=== PATIENT | female | born 1935 | race Caucasian/White ===

== ENCOUNTER 2019-01-17 09:34 | Inpatient (IN) ==
--- NOTE | 2019-01-17 09:13 | Anesthesia Evaluation PreOp ---
Date of Encounter: 01/17/19 Time of Encounter: 10:15 - Past History Planned Operation: Right Total Hip Arthroplasty Cardiac History: HTN, Hyperlipidemia Pulmonary History: Denies Any Significant HX JACQUARD FIXER History: Denies Any Significant HX Other Medical History: GERD Anesthesia History: No Prior Anesthetic Complications, Past Anesthesia Alcohol Use: none Drug use: none Medications and Allergies Allergy/AdvReac Type Severity Reaction Status Date / Time meloxicam [From Mobic] Allergy Hives Verified 12/30/18 15:50 pecan nut Allergy Anaphylaxis Verified 12/30/18 15:50 walnut Allergy Anaphylaxis Verified 12/30/18 15:50 - Meds/Allergy Pre-op Review Medications Reviewed: Yes Allergies Reviewed: Yes Beta Blockers on Current Med List: No Anesthesia Results - Labs Laboratory Tests 12/24/18 12/24/18 12/30/18 15:13 15:13 16:13 WBC 6.6 Hgb 10.3 L Hct 31.6 L Plt Count 272 PT 10.7 INR 0.9 APTT 32.8 Sodium 134 L Potassium 4.9 BUN 36 H Creatinine 1.05 - Imaging Additional studies: 11/20/2018 Echo Impressions: LVEF 65%. Mild left ventricular diastolic dysfunction. Normal right ventricular structure and function. Mild aortic regurgitation. Mild tricuspid regurgitation. Mild pulmonary hypertension.Estimated RVSP is 45 mmHg. Anesthesia Exam O2 Sat Height 1.57 m Height 1.57 m Weight 63.957 kg Weight 63.957 kg O2 Sat by Pulse Oximetry 99 Vital Signs Temp Pulse Resp BP Pulse Ox 97.9 F 99 18 167/65 99 01/17/19 09:57 01/17/19 09:57 01/17/19 09:57 01/17/19 09:57 01/17/19 09:57 Height: 5'2'' Weight: 141 lbs NPO (# of Hours): 8 Pain Scale: 0 Pain Scale Used: Numeric (1 - 10) - HEENT Pupil (Motor): EOMI Mallampati: II Teeth: Normal Oral Opening: Greater than 3 - JACQUARD FIXER LOC: Oriented JACQUARD FIXER Motor: Normal RUE, Normal LUE, Normal RLE, Normal LLE, Normal Face JACQUARD FIXER Sensory: Normal: RUE, LUE, RLE, LLE, Face - Cardiac Rhythm: Regular Murmur: None - Pulmonary Breath Sounds: bilateral Clear Respiratory Effort: Symmetrical Anesthesia Assess/Plan ASA Score: 2 Level of consciousness: Cooperative, Oriented, Tranquil Anesthetic Plan: Spinal Monitoring Plan: Standard Monitors Recovery Plan: PACU
[2019-01-17] MEDS ORDERED: CeFAZolin Syr 2,000MG/20 ML 2,000 MG/20 ML SYRINGE IVPB ONE (09:52)
[2019-01-17] MEDS ORDERED: Ringers Solution, Lactated 1,000 ML IVC SCH (10:00)
--- NOTE | 2019-01-17 10:26 | History & Physical Report ---
Date of Encounter: 01/17/19 Time of Encounter: 10:26 24 Hour HP Update - Instructions Instructions: If the History and Physical is less than 30 days old and was completed prior to A.M. admission and or procedure and has NOT been updated on calendar day of procedure please complete this update prior to performing procedure. - Update Patient reports changes in Medical Condition: No Changes in examination, assessment, or condition: No Changes in Medication: No Preop tests/diagnostics Reviewed: Yes Surgery Remains Indicated: Yes Consent for Planned Operative Procedure(s) Verified: Yes - Pre-Operative Checklist Preoperative Checklist Indicated: No Prophylactic Antibiotic Ordered: Yes Is VTE Prophylaxis Indicated?: Yes
[2019-01-17] MEDS ORDERED: Gabapentin 300 MG CAPSULE PO ONE (10:34)
[2019-01-17] MEDS ORDERED: Celecoxib 200 MG CAPSULE PO ONE (10:34)
[2019-01-17] MEDS ORDERED: *HR* OxyCODONE ER (12 HR) 10 MG TABLET PO ONE (10:35)
[2019-01-17] MEDS ORDERED: Ondansetron 4 MG/2 ML VIAL IVP ONE (10:36)
[2019-01-17] MEDS ORDERED: *HR* HYDROmorphone (PF) 1 MG/ML SYRINGE IVP PRN (10:36)
[2019-01-17] MEDS ORDERED: Lidocaine -MPF 2% 2 ML VIAL ONE (11:09)
[2019-01-17] MEDS ORDERED: Ondansetron 4 MG/2 ML VIAL ONE (11:09)
[2019-01-17] MEDS ORDERED: Propofol 500 MG/50 ML INFUS..BTL ONE (11:10)
[2019-01-17] MEDS ORDERED: *HR* FentaNYL (PF) 100 MCG/2 ML VIAL ONE (11:10)
[2019-01-17] MEDS ORDERED: Dexamethasone 4 MG/ML VIAL ONE (11:26)
[2019-01-17] MEDS ORDERED: Ethanol\\Acetic Acid\\Na Ace\\Ben 1,000 ML IRRIG.SOLN IR ONE (12:00)
--- NOTE | 2019-01-17 12:04 | Anesthesia Procedures ---
Date of Encounter: 01/17/19 Time of Encounter: 12:02 Procedures: Anesthesia - Epidural/Spinal Patient ID/Chart reviewed: Yes Patient examined: Yes Consent Obtained: Yes Supplemental Oxygen: Nasal Cannula Supplemental Oxygen Rate (L/min): 2 Sedation: Fentanyl (mcg): 100 Site Prep: Sterile prep and drape, 0.5% Chlorhexidine/Alcohol Patient position: upright Local Anesthetic: Lidocaine 1% Amount of Local Anesthetic used: 2 Interspace Used: L3-L4 Loss of Resistance (ROMIE): No Blood: No CSF: Yes Paresthesia: No Spinal Needle Gauge: 24 Spinal Dose: 2cc 0.5% mpf marcaine Procedure: naac, performed by TU Hernandez Vitals + FHT's: Vital Signs/O2 Sat/Glucose, Most Recent Temp Pulse Resp BP Pulse Ox 97.9 F 78 20 161/62 100 01/17/19 09:57 01/17/19 11:49 01/17/19 11:49 01/17/19 11:49 01/17/19 11:49
[2019-01-17] MEDS ORDERED: Tranexamic Acid 1,000 MG/10 ML VIAL ONE (12:25)
[2019-01-17] MEDS ORDERED: EPHEDrine 50 MG/ML VIAL ONE (12:37)
[2019-01-17] MEDS ORDERED: *HR* PHENYLEPHRINE 1,000 MCG/10 ML SYRINGE IVP ONE (12:57)
--- NOTE | 2019-01-17 13:31 | Orthopedic Operative Note ---
Date of procedure: 01/17/19 Pre-op diagnosis: Right hip arthritis Post-op diagnosis: same Procedure: Procedure: Right Total Hip Replacment robotic-assisted Estimated blood loss: 200 cc Hardware: Metal and polyethylene replacement. Meng DM Cup: 52 cup Femoral 5 Anato, Anteverted stem Head: 0 head with Ella Procedural Notes: Grade 4 arthritic changes femoral head acetabular socket, procedure performed with robotic assistance. Operative leg 7 mm shorter than nonoperative as measured by preoperative CT scan. Operative procedure: The patient was brought to the operating room and placed on the operating room table. After anesthesia was administered the patient was placed in the lateral decubitus position with the operative leg up. All pressure points were padded appropriately and the head was stabilized in the neutral position. The operative extremity was prepped and draped in the sterile surgical fashion patient received IV antibiotic prior to skin incision. 3 Steinmann pins were placed in the iliac crest 3 cm proximal to the anterior superior iliac spine this was for the robotic-assisted sensor. This was done through a small 2 cm incision. A standard posterior approach is made to the operative hip, the inc ision was made through the skin and subcutaneous tissue hemostasis was obtained with Bovie cautery. Using careful sharp dissection the fascia was identified and incised exposing the external rotators. The greater trochanter was marked, and length was measured at this time utilizing robotic assistance. The external rotators were released off the greater trochanter and tagged with #2 FiberWire suture. The capsule was T'd open and the hip was brought into internal rotation. Patient noted to have grade 4 arthritic changes femoral head. The femoral neck cut was made at the appropriate level roughly 15 mm proximal to the lesser trochanter aced on preoperative templating. An anterior capsulotomy was performed for the anterior retractor. Soft tissues removed from the acetabulum. Patient noted to have grade 4 arthritic changes acetabulum. The acetabulum reference point was confirmed. The acetabulum was then mapped with robotic assistance. Based on the preoperative plan the acetabulum was reamed in one step with a52 reamer. The 52 acetabulum was impacted with robotic assistance and 36 degrees of abduction and 24 degrees of anteversion. The hip was brought back in to internal rotation and prepared with the paper box maker followed by the canal finder followed by the reaming process to a size 13 broaching process in 20 degrees anteversion. It was broached up to the appropriate size 5 Trial reduction revealed leg lengths close to normal. The femoral implant was impacted in place in 20 degrees of anteversion. Trial reduction found the hip to be stable with 0 head and Ella. The trials were removed and the real implants were impacted in place. The hip was reduced, patient had robotic confirmed leg length of 8 mm longer than the contralateral side. The hip had excellent stability with forward flexion to 90 degrees adduction of 30 degrees and internal rotation of 60 degrees. The hip had no shuck. The hip sat with an antibacterial solution. It was irrigated out with 2 L of pulse irrigation. The Steinmann pins were removed. The hip was closed by the PA. The deep tissue was irrigated and closed deep with #1 PDS suture superficially with 0 PDS suture and skin was closed with Dermabond and zip tie. The patient was placed in a sterile dressing and abduction pillow. The patient was transferred to the recovery room in stable condition. Anesthesia: spinal Surgeon: Shamar Avina Was there an assistant shift supervisor present: Yes [employer] Extension Specialist: Scott العراقي Estimated blood loss (cc): 200 Condition: stable Disposition: PACU
[2019-01-17] MEDS ORDERED: Naloxone 0.4 MG/ML INJ IVP PRN (14:44)
[2019-01-17] MEDS ORDERED: traMADol 50 MG TABLET PO PRN (14:44)
[2019-01-17] MEDS ORDERED: Sennosides 8.6 MG TABLET PO PRN (14:44)
[2019-01-17] MEDS ORDERED: Ondansetron 4 MG/2 ML VIAL IVP PRN (14:44)
[2019-01-17] MEDS ORDERED: MOM Conc 10 ML UD.LIQ PO PRN (14:44)
[2019-01-17] MEDS ORDERED: *HR* OxyCODONE Immed Rel 5 MG TABLET PO PRN (14:44)
[2019-01-17] MEDS ORDERED: HYDROcodone BIT/Homatropine 5 MG TABLET PO PRN (14:44)
[2019-01-17] MEDS ORDERED: Temazepam 15 MG CAPSULE PO PRN (14:44)
[2019-01-17] MEDS ORDERED: *HR* Promethazine 25 MG/ML VIAL IVP PRN (14:44)
--- NOTE | 2019-01-17 14:58 | Anesthesia Evaluation Post Op ---
Date of Encounter: 01/17/19 Time of Encounter: 14:57 - Vital Signs Vital Signs: Vital Signs/O2 Sat, Most Current Temp Pulse Resp BP Pulse Ox 98 F 84 18 145/59 97 01/17/19 14:42 01/17/19 14:42 01/17/19 14:42 01/17/19 14:42 01/17/19 14:42 - Lungs Lungs: Clear Ascult./Percussion - Airway Airway: Non-obstructed - Cardiovascular Regular Rate - Mental Status Mental Status: Baseline Status - Pain Pain Scale: 0 Pain Scale used: Numeric (1 - 10) - Nausea Vomiting Nausea Vomiting: Not Present - Hydration Hydration: Ice chips - Discharge PostOp Status: Transfer Patient to floor
[2019-01-17 15:05] LABS: Hematocrit 31.1 % (35.3-44.9); Hemoglobin 10.1 g/dL (11.5-15.4)
[2019-01-17] MEDS: Ascorbic Acid 500 MG TABLET PO SCH (16:12)
[2019-01-17] MEDS: *HR* Enoxaparin 30 MG/0.3 ML SYRINGE SQ SCH (17:55)
[2019-01-17] MEDS ORDERED: *HR* Enoxaparin 30 MG/0.3 ML SYRINGE SQ SCH (18:00)
[2019-01-17] MEDS: Gabapentin 300 MG CAPSULE PO SCH (20:45)
[2019-01-17] MEDS ORDERED: NON-FORMULARY MEDICATION 1 EACH EACH (Calcium Carbonate/Vitamin D3 [Calcium 500-Vit D3 200 PO SCH (21:00)
[2019-01-18] MEDS: Ringers Solution, Lactated 1,000 ML IVC SCH (00:33)
[2019-01-18 05:24] LABS: Basophils % 0.1 %; Hematocrit 28.3 % (35.3-44.9); Hemoglobin 9.2 g/dL (11.5-15.4); Immature Granulocytes % 0.4 % (0-4); Lymphocytes # 0.7 K/mcL (0.6-4.6); Mean Corpuscular HGB Conc 32.5 g/dL (31.6-35.5); Mean Corpuscular Hemoglobin 31.2 pg (28.0-33.3); Mean Corpuscular Volume 95.9 fL (83.0-100.0); Mean Platelet Volume 11.1 fL (9.4-12.4); Monocytes # 0.7 K/mcL (0.0-1.3); Monocytes % 9.1 %; Neutrophils # 6.1 K/mcL (1.6-8.9); Platelet Count 212 K/mcL (140-400); Red Blood Count 2.95 M/mcL (3.82-4.97); Red Cell Distribution Width 15.1 % (11.5-14.5); Segmented Neutrophils % 81.4 %; White Blood Count 7.5 K/mcL (4.3-11.1)
[2019-01-18] MEDS: *HR* Enoxaparin 30 MG/0.3 ML SYRINGE SQ SCH (05:31)
[2019-01-18 05:40] LABS: BUN/Creatinine Ratio 40 (6-26); Blood Urea Nitrogen 40 mg/dL (8-23); Carbon Dioxide 23 mEq/L (23-29); Chloride 103 mEq/L (98-107); Glucose 173 mg/dL (70-105); Osmolality,Calculated 292 (280-300); Potassium 4.7 mEq/L (3.5-5.1); Sodium 134 mEq/L (136-145); eGFR For African Americans > 60 (> 60); eGFR For Non-African Americans 54 (> 60)
--- NOTE | 2019-01-18 06:30 | Orthopedics Progress Note ---
Date of Encounter: 01/18/19 Time of Encounter: 06:29 - Assessment and Plan (1) Acute blood loss anemia Current Visit: Yes Status: Acute Subjective Interval history: Patient was seen this morning doing well without complaints. Afebrile vital signs stable. Operative extremity: Neurovascularly intact Dressing clean dry and intact Calves nontender Assessment and plan: Continue with postoperative care Crit 28 Objective Vital signs: Vital Signs Temp Pulse Resp BP Pulse Ox 01/17/19 20:43 129/69 01/17/19 18:24 97.5 F L 78 12 119/66 98 01/17/19 17:41 97.7 F 81 16 132/86 98 01/17/19 17:00 97.8 F 92 17 136/78 97 01/17/19 16:00 97.9 F 90 171 149/73 96 01/17/19 15:30 98.1 F 86 16 157/74 100 01/17/19 14:57 98.0 F 89 16 155/63 94 01/17/19 14:42 98 F 84 18 145/59 97 01/17/19 14:32 98 F 85 18 143/89 95 01/17/19 14:22 86 14 125/53 99 01/17/19 14:12 77 14 133/48 96 01/17/19 14:02 97.8 F 88 12 123/51 99 01/17/19 12:20 91 16 130/51 100 01/17/19 12:15 88 16 126/51 100 01/17/19 12:10 86 16 131/51 100 01/17/19 12:05 71 16 136/54 100 01/17/19 12:02 77 16 148/55 100 01/17/19 11:59 76 18 150/51 100 01/17/19 11:56 75 18 149/52 100 01/17/19 11:53 83 18 167/64 100 01/17/19 11:49 78 20 161/62 100 01/17/19 09:57 97.9 F 99 18 167/65 99 Intake and Output 01/17/19 01/17/19 01/18/19 15:59 23:59 07:59 Intake Total 20 / 295 275 / 295 50 / 50 Output Total 200 / 200 0 / 200 0 / 0 Balance -180 / 95 275 / 95 50 / 50 Intake: IV Fluids 20 / 120 100 / 120 Ancef Syringe 2,000 MG/20 ML 2, 20 / 20 000 mg In 20 ml @ 200 mls/hr IVPB PREOP ONE Rx#:[id number] Ancef 2,000 MG In 0.9 % Sodium 100 / 100 Chloride 100 ML @ 200 mls/hr IVPB Q8H SOTO Rx#:[id number] Oral 175 / 175 50 / 50 Output: Urine 0 / 0 0 / 0 Estimated Blood Loss 200 / 200 Other: Meal Dinner Percent of Meal Consumed 0% Weight 63.957 kg 63.8 kg Patient Weight 01/18/19 23:59 Weight 63.8 kg - Labs CBC & BMP: 01/18/19 05:01 01/18/19 05:01 Labs: Abnormal lab results RBC 2.95 M/mcL (3.82-4.97) L 01/18/19 05:01 Hgb 9.2 g/dL (11.5-15.4) L 01/18/19 05:01 Hct 28.3 % (35.3-44.9) L 01/18/19 05:01 RDW 15.1 % (11.5-14.5) H 01/18/19 05:01 Sodium 134 mEq/L (136-145) L 01/18/19 05:01 BUN 40 mg/dL (8-23) H 01/18/19 05:01 Est GFR (Non-Af Amer) 54 (> 60) L 01/18/19 05:01 BUN/Creatinine Ratio 40 (6-26) H 01/18/19 05:01 Glucose 173 mg/dL (70-105) H 01/18/19 05:01 Consult Discharge Plan - Plan Referrals: Gabo Cantrell MD [Primary Care Provider] -
[2019-01-18] MEDS: Multivit/Ca/Min/Fe/FA 1 TAB TABLET PO SCH (08:31)
[2019-01-18] MEDS: Cholecalciferol (D-3) 1,000 UNIT (25MCG) TABLET PO SCH (08:31)
[2019-01-18] MEDS: hydroCHLOROthiazide 25 MG TABLET PO SCH (08:31)
[2019-01-18] MEDS: Ascorbic Acid 500 MG TABLET PO SCH ×2 (08:32→16:06)
[2019-01-18] MEDS: Gabapentin 300 MG CAPSULE PO SCH ×3 (08:32→21:40)
[2019-01-18] MEDS ORDERED: NON-FORMULARY MEDICATION 1 EACH EACH (Biotin 1 MG) PO SCH (09:00)
[2019-01-18] MEDS ORDERED: NON-FORMULARY MEDICATION 1 EACH EACH (Multivitamin [Daily Multiple Vitamin] 1 TAB) PO SCH (09:00)
[2019-01-18] MEDS ORDERED: NON-FORMULARY MEDICATION 1 EACH EACH (Vitamin B Complex [B Complex] 1 TAB) PO SCH (09:00)
[2019-01-18] MEDS ORDERED: NON-FORMULARY MEDICATION 1 EACH EACH (Ascorbate Calcium [Vitamin C] 500 MG) PO SCH (09:00)
[2019-01-18] MEDS ORDERED: NON-FORMULARY MEDICATION 1 EACH EACH (Vit A/C/E Ac/Znox/Cupric Oxide [Eye Vitamin-Minerals PO SCH (09:00)
--- NOTE | 2019-01-18 11:19 | Physician Discharge Referral ---
<Kamille Ayoub - Last Filed: 01/18/19 14:37> ExtendedCare Referral Info Transfer To: [facility] Provider in Charge: Dr. Avina - Diagnosis (1) Status post total hip replacement, right Priority: Primary Status: Acute (2) Arthritis of right hip Priority: Primary Status: Chronic (3) CKD (chronic kidney disease) Priority: Secondary Status: Chronic (4) GERD (gastroesophageal reflux disease) Priority: Secondary Status: Chronic (5) HLD (hyperlipidemia) Priority: Secondary Status: Chronic (6) HTN (hypertension) Priority: Secondary Status: Chronic (7) History of peptic ulcer Priority: Secondary Status: Chronic (8) Acute blood loss anemia Priority: Secondary Status: Chronic Expected Duration of Placement: <30 days Prognosis: Good Aware of Diagnosis: Patient Aware of Prognosis: Patient - Transfer Medications Prescriptions: Docusate Sodium [Colace] 100 mg PO BID 5 Days #10 capsule Enoxaparin [Lovenox] 30 mg SQ DAILY 14 Days #14 syringe OxyCODONE Immed Rel [Roxicodone 5 MG] 5 mg PO Q6HR PRN 5 Days #20 tablet PRN Reason: Severe Pain Home Medications: Ascorbate Calcium [Vitamin C] 500 mg PO DAILY 01/17/19 [History] Atorvastatin [Lipitor] 40 mg PO QPM 01/17/19 [History] Biotin 1 mg PO DAILY 01/17/19 [History] Calcium Carbonate/Vitamin D3 [Calcium 500-Vit D3 200 Caplet] 1 tab PO BID 01/17/19 [History] Ferrous Sulfate 325 mg PO BID 01/17/19 [History] Gluc Levy/Chondro Levy A/Vit C/Mn [Glucosamine Chondroitin Tab] 3 tab PO DAILY 01/17/19 [History] Lisinopril [Zestril] 10 mg PO BID 01/17/19 [History] Multivitamin [Daily Multiple Vitamin] 1 tab PO DAILY 01/17/19 [History] Pantoprazole Sodium [Protonix] 40 mg PO QPM 01/17/19 [History] Vit A/C/E AC/Znox/Cupric Oxide [Eye Vitamin-Minerals Tablet] 1 tab PO DAILY 01/17/19 [History] Vitamin B Complex [B Complex] 1 tab PO DAILY 01/17/19 [History] hydroCHLOROthiazide [Hydrochlorothiazide] 12.5 mg PO QAM 01/17/19 [History] Docusate Sodium [Colace] 100 mg PO BID 5 Days #10 capsule 01/20/19 [Rx] Enoxaparin [Lovenox] 30 mg SQ DAILY 14 Days #14 syringe 01/20/19 [Rx] OxyCODONE Immed Rel [Roxicodone 5 MG] 5 mg PO Q6HR PRN 5 Days #20 tablet 01/20/19 [Rx] Allergies/Adverse Reactions: Allergy/AdvReac Type Severity Reaction Status Date / Time meloxicam [From Mobic] Allergy Hives Verified 01/17/19 10:22 pecan nut Allergy Anaphylaxis Verified 01/17/19 10:22 walnut Allergy Anaphylaxis Verified 01/17/19 10:22 - Respiratory Orders None Smoking Cessation: Smoking cessation has been advised. For more information, call the [facility] [employer] Tobacco Quit Line at 3-364-IXQU-NOW. - Ancillary Orders May use pressure relief devices daily prn, May go on UDAY w/family/respon democrat w/meds at nurse discretion PRN, May consult with Dentist, Pegger Dobby Looms, Inspector Timers PRN - Advance Directives Code Status: Full Code - Mobility Orders Chair, Ambulate - Rehabiliation Orders Rehab Potential: Good Rehab Orders: ROM Exercises, Evaluation for Physical Therapy, Evaluation for Occupational Therapy Other: Opsite dressing, leave intact until first post-operative visit. If dressing becomes >50% saturated, contact office, remove dressing and place appropriate dressing in its place. Do not allow for dressing to get wet. Zipline/Condon in place, plan to remove at post-operative day #14-16. Total Joint Precautions x 6 weeks Apply cold therapy wrap 3-6x/day for 20 minutes at a time. Encourage ambulation throughout the day Use Incentive spirometer 10x/hour. Elevate affected extremity above heart as tolerated. Brace: Wear hip abductor brace at night x 6 weeks - Treatments Skin tear care topically daily PRN per policy - Diet Orders Regular CERTIFICATION: I certify that the transfer of the above named patient to an Extended Care Facility is necessary for the continuing treatment of the diagnosis listed. The above information is true and accurate reflection of patient's current condition. Confidential - Redisclosure prohibited without a patient's written consent. <Kamille Partida E - Last Filed: 01/22/19 08:09> - Diagnosis (1) Arthritis of right hip Priority: Primary Status: Chronic (2) Status post total hip replacement, right Priority: Primary Status: Acute (3) HTN (hypertension) Priority: Secondary Status: Chronic (4) HLD (hyperlipidemia) Priority: Secondary Status: Chronic (5) GERD (gastroesophageal reflux disease) Priority: Secondary Status: Chronic (6) History of peptic ulcer Priority: Secondary Status: Chronic (7) CKD (chronic kidney disease) Priority: Secondary Status: Chronic (8) Acute blood loss anemia Priority: Secondary Status: Acute - Respiratory Orders Smoking Cessation: Smoking cessation has been advised. For more information, call the [place] Tobacco Quit Line at 1-154-SHBP-NOW. CERTIFICATION: I certify that the transfer of the above named patient to an Extended Care Facility is necessary for the continuing treatment of the diagnosis listed. The above information is true and accurate reflection of patient's current condition. Confidential - Redisclosure prohibited without a patient's written consent.
--- NOTE | 2019-01-18 11:19 | Event Note ---
Date of Encounter: 01/18/19 Time of Encounter: 12:50 POD#1 s/p Right Total Hip Replacment robotic-assisted [arthritis] 01/17/19 PCR - Patient seen at bedside. A&Ox3 Dressing and incision c/d/i No calf tenderness, erythema, or warmth. Neurovascularly intact b/l LE. Labwork, vitals, and medications reviewed. Pain control: Adequate Participating in therapy. All questions and concerns addressed. Educated on use of incentive spirometer, ambulation, and hydration. Patient educated on post-operative restrictions and care. Addressed: Mild decrease from baseline renal function. Will continue to monitor Patient course and disposition discussed with Dr. Avina D/C plan: Await acceptance for ECF
[2019-01-19 06:29] LABS: Basophils % 0.3 %; Eosinophils # 0.1 K/mcL (0.0-0.6); Eosinophils % 1.1 %; Immature Granulocytes % 0.3 % (0-4); Lymphocytes # 1.3 K/mcL (0.6-4.6); Lymphocytes % 20.3 %; Mean Corpuscular HGB Conc 32.6 g/dL (31.6-35.5); Mean Corpuscular Hemoglobin 30.9 pg (28.0-33.3); Mean Corpuscular Volume 94.7 fL (83.0-100.0); Mean Platelet Volume 11.7 fL (9.4-12.4); Monocytes # 0.7 K/mcL (0.0-1.3); Neutrophils # 4.4 K/mcL (1.6-8.9); Platelet Count 194 K/mcL (140-400); Red Blood Count 2.43 M/mcL (3.82-4.97); Red Cell Distribution Width 15.3 % (11.5-14.5); White Blood Count 6.6 K/mcL (4.3-11.1)
[2019-01-19 06:30] LABS: Hemoglobin 7.5 g/dL (11.5-15.4)
--- NOTE | 2019-01-19 06:48 | Orthopedics Progress Note ---
Date of Encounter: 01/19/19 Time of Encounter: 06:47 - Assessment and Plan (1) Acute blood loss anemia Current Visit: Yes Status: Chronic Subjective Interval history: Patient was seen this morning doing well without complaints. Afebrile vital signs stable. Operative extremity: Neurovascularly intact Dressing clean dry and intact Calves nontender Assessment and plan: Continue with postoperative care Hemoglobin 7.5 continue to monitor plan for discharge tomorrow Objective Vital signs: Vital Signs Temp Pulse Resp BP Pulse Ox 01/18/19 18:51 97.9 F 78 16 124/61 99 01/18/19 06:51 98.2 F 67 18 131/53 93 Intake and Output 01/18/19 01/18/19 01/19/19 15:59 23:59 07:59 Intake Total 480 / 870 240 / 870 Balance 480 / 870 240 / 870 Intake: Oral 480 / 770 240 / 770 Other: Meal Breakfast Dinner Percent of Meal Consumed 100% 100% # Voids 1 1 - Labs CBC & BMP: 01/19/19 05:46 01/18/19 05:01 Labs: Abnormal lab results RBC 2.43 M/mcL (3.82-4.97) L 01/19/19 05:46 Hgb 7.5 g/dL (11.5-15.4) L D 01/19/19 05:46 Hct 23.0 % (35.3-44.9) L 01/19/19 05:46 RDW 15.3 % (11.5-14.5) H 01/19/19 05:46 Sodium 134 mEq/L (136-145) L 01/18/19 05:01 BUN 40 mg/dL (8-23) H 01/18/19 05:01 Est GFR (Non-Af Amer) 54 (> 60) L 01/18/19 05:01 BUN/Creatinine Ratio 40 (6-26) H 01/18/19 05:01 Glucose 173 mg/dL (70-105) H 01/18/19 05:01 Consult Discharge Plan - Plan Referrals: Gabo Cantrell MD [Primary Care Provider] -
[2019-01-19 06:49] LABS: Calcium 8.4 mg/dL (8.6-10.3); Potassium 4.3 mEq/L (3.5-5.1)
[2019-01-19] MEDS: hydroCHLOROthiazide 25 MG TABLET PO SCH (08:41)
[2019-01-19] MEDS: Ringers Solution, Lactated 1,000 ML IVC SCH (08:45)
[2019-01-19] MEDS: Cholecalciferol (D-3) 1,000 UNIT (25MCG) TABLET PO SCH (08:46)
[2019-01-19] MEDS: Ascorbic Acid 500 MG TABLET PO SCH ×2 (08:46→16:55)
[2019-01-19] MEDS: Multivit/Ca/Min/Fe/FA 1 TAB TABLET PO SCH (08:46)
--- NOTE | 2019-01-19 08:47 | Event Note ---
Date of Encounter: 01/19/19 Time of Encounter: 10:45 POD#2 s/p Right Total Hip Replacment robotic-assisted [arthritis] 01/17/19 PCR - Patient seen at bedside. She states she feels unwell. Patient noted to be pale with lethargy. A&Ox3 Dressing and incision c/d/i No calf tenderness, erythema, or warmth. Neurovascularly intact b/l LE. Labwork, vitals, and medications reviewed. Patient with drop in hemoglobin as well as decreased renal function. BP appears stable. Decreased renal function likely secondary to anemia and dehydration. Pain control: Adequate Participating in therapy. All questions and concerns addressed. Educated on use of incentive spirometer, ambulation, and hydration. Patient educated on post-operative restrictions and care. Addressed: Mild decrease from baseline renal function. Will continue to monitor. 1 unit PRBC ordered with repeat BMP and H/H following completion. Recheck again in the morning. Patient course and disposition discussed with Dr. Avina D/C plan: Accepted at [facility], awaiting insurance auth.
[2019-01-19] MEDS: Gabapentin 300 MG CAPSULE PO SCH (08:49)
[2019-01-19] MEDS ORDERED: *HR* Enoxaparin 30 MG/0.3 ML SYRINGE SQ SCH (09:00)
[2019-01-19] MEDS ORDERED: 0.9 % Sodium Chloride 250 ML IVC SCH (09:00)
[2019-01-19 09:28] LABS: Hematocrit 24.2 % (35.3-44.9); Hemoglobin 7.9 g/dL (11.5-15.4)
[2019-01-19] MEDS ORDERED: 0.9 % Sodium Chloride 250 ML ONE (11:07)
[2019-01-19 15:40] LABS: Calcium 8.6 mg/dL (8.6-10.3); Potassium 4.4 mEq/L (3.5-5.1)
[2019-01-19] MEDS ORDERED: 0.9 % Sodium Chloride 1,000 ML IVC SCH (16:45)
[2019-01-19] MEDS ORDERED: 0.9 % Sodium Chloride 1,000 ML ONE (16:53)
[2019-01-20] MEDS ORDERED: Diphenoxylate/Atropine 1 TAB TABLET PO PRN (04:12)
[2019-01-20 06:48] VITALS: BP 134/68
[2019-01-20 07:55] LABS: Basophils % 0.3 %; Eosinophils # 0.2 K/mcL (0.0-0.6); Eosinophils % 2.5 %; Hematocrit 30.4 % (35.3-44.9); Immature Granulocytes % 0.4 % (0-4); Lymphocytes # 1.3 K/mcL (0.6-4.6); Lymphocytes % 16.4 %; Mean Corpuscular HGB Conc 33.2 g/dL (31.6-35.5); Mean Corpuscular Hemoglobin 31.1 pg (28.0-33.3); Mean Corpuscular Volume 93.5 fL (83.0-100.0); Mean Platelet Volume 11.3 fL (9.4-12.4); Monocytes # 0.7 K/mcL (0.0-1.3); Monocytes % 8.4 %; Neutrophils # 5.7 K/mcL (1.6-8.9); Platelet Count 214 K/mcL (140-400); Red Blood Count 3.25 M/mcL (3.82-4.97); Red Cell Distribution Width 15.8 % (11.5-14.5); White Blood Count 7.9 K/mcL (4.3-11.1)
--- NOTE | 2019-01-20 07:55 | Orthopedics Progress Note ---
Date of Encounter: 01/20/19 Time of Encounter: 07:54 - Assessment and Plan (1) Acute blood loss anemia Current Visit: Yes Status: Chronic Subjective Interval history: Patient was seen this morning loose stool overnight Afebrile vital signs stable. Operative extremity: Neurovascularly intact Dressing clean dry and intact Calves nontender Assessment and plan: Continue with postoperative care Patient received 2 units packed red blood cells repeat H&H pending Objective Vital signs: Vital Signs Temp Pulse Resp BP Pulse Ox 01/20/19 06:47 97.8 F 76 18 134/68 97 01/19/19 19:10 97.9 F 69 17 146/76 99 01/19/19 14:13 98.1 F 74 17 136/58 97 01/19/19 11:39 98.4 F 71 16 142/61 97 01/19/19 11:24 97.8 F 73 16 158/57 96 Intake and Output 01/19/19 01/19/19 01/20/19 15:59 23:59 07:59 Intake Total 590 / 590 Output Total 200 / 200 Balance 390 / 390 Intake: Oral 240 / 240 Blood Product 350 / 350 Rbcs Leuko Poor As-1 Unit 350 / 350 [id number] Output: Urine 200 / 200 Other: Meal Lunch Percent of Meal Consumed 50% Stool Size Large Stool Consistency loose Stool Color Brown # Voids 1 1 1 # Bowel Movements 1 Weight 63.7 kg Patient Weight 01/20/19 23:59 Weight 63.7 kg - Labs CBC & BMP: 01/19/19 08:40 01/19/19 14:57 Labs: Abnormal lab results RBC 2.43 M/mcL (3.82-4.97) L 01/19/19 05:46 Hgb 7.9 g/dL (11.5-15.4) L 01/19/19 08:40 Hct 24.2 % (35.3-44.9) L 01/19/19 08:40 RDW 15.3 % (11.5-14.5) H 01/19/19 05:46 Sodium 133 mEq/L (136-145) L 01/19/19 14:57 BUN 47 mg/dL (8-23) H 01/19/19 14:57 Creatinine 1.36 mg/dL (0.60-1.20) H 01/19/19 14:57 Est GFR ( Amer) 45 (> 60) L 01/19/19 14:57 Est GFR (Non-Af Amer) 37 (> 60) L 01/19/19 14:57 BUN/Creatinine Ratio 35 (6-26) H 01/19/19 14:57 Glucose 123 mg/dL (70-105) H 01/19/19 14:57 Calcium 8.4 mg/dL (8.6-10.3) L 01/19/19 05:46 Crossmatch See Detail 01/19/19 09:24 Consult Discharge Plan - Plan Referrals: Gabo Cantrell MD [Primary Care Provider] -
[2019-01-20 07:58] LABS: Hemoglobin 10.1 g/dL (11.5-15.4)
[2019-01-20] MEDS: Ascorbic Acid 500 MG TABLET PO SCH (08:06)
[2019-01-20] MEDS: Multivit/Ca/Min/Fe/FA 1 TAB TABLET PO SCH (08:06)
[2019-01-20] MEDS: Cholecalciferol (D-3) 1,000 UNIT (25MCG) TABLET PO SCH (08:06)
[2019-01-20 08:08] LABS: BUN/Creatinine Ratio 40 (6-26); Blood Urea Nitrogen 38 mg/dL (8-23); Calcium 8.6 mg/dL (8.6-10.3); Carbon Dioxide 24 mEq/L (23-29); Chloride 105 mEq/L (98-107); Glucose 110 mg/dL (70-105); Osmolality,Calculated 296 (280-300); Potassium 4.7 mEq/L (3.5-5.1); Sodium 138 mEq/L (136-145); eGFR For African Americans > 60 (> 60); eGFR For Non-African Americans 56 (> 60)
--- NOTE | 2019-01-20 11:34 | Discharge Summary ---
Date of Encounter: 01/20/19 Time of Encounter: 11:50 - Discharge Diagnosis (1) Arthritis of right hip Priority: Primary Status: Chronic (2) Status post total hip replacement, right Priority: Primary Status: Acute (3) HTN (hypertension) Priority: Secondary Status: Chronic Qualifiers: Hypertension type: unspecified Qualified Code(s): I10 - Essential (primary) hypertension (4) HLD (hyperlipidemia) Priority: Secondary Status: Chronic Qualifiers: Hyperlipidemia type: unspecified Qualified Code(s): E78.5 - Hyperlipidemia, unspecified (5) GERD (gastroesophageal reflux disease) Priority: Secondary Status: Chronic Qualifiers: Esophagitis presence: esophagitis presence not specified Qualified Code(s): K21.9 - Gastro-esophageal reflux disease without esophagitis (6) History of peptic ulcer Priority: Secondary Status: Chronic (7) CKD (chronic kidney disease) Priority: Secondary Status: Chronic Qualifiers: Chronic kidney disease stage: unspecified stage Qualified Code(s): N18.9 - Chronic kidney disease, unspecified (8) Acute blood loss anemia Priority: Secondary Status: Acute - Hospital Course Hospital course: Ms. Hector is a 83 year old female POD#3 s/p Right Total Hip Replacment robotic-assisted [arthritis] 01/17/19 PCR - Patient seen at bedside. Patient states she feels much better. A&Ox3 Dressing and incision c/d/i No calf tenderness, erythema, or warmth. Neurovascularly intact b/l LE. Labwork, vitals, and medications reviewed. Pain control: Adequate Participating in therapy. All questions and concerns addressed. Educated on use of incentive spirometer, ambulation, and hydration. Patient educated on post-operative restrictions and care. Addressed: Renal function has returned to baseline and hemoglobin is now at satisfactory level. Patient received 1 unit PRBC and 1 L nl saline gentle hydration on POD#2 for acute symptomatic postoperative anemia and dehydration. The patient's postoperative course was uneventful. Progressed from intravenous analgesic needs to oral analgesic needs only. Remained neurovascularly intact and mobilized satisfactorily. All radiographic studies were satisfactory. Patient course and disposition discussed with Dr. Avina. Patient is discharged to rehab with plan for rehabilitation and outpatient orthopedic follow up has been arranged. - Time Spent with Patient Total time spent providing and/or coordinating discharge services: - Discharge Medications Prescriptions: New Docusate Sodium [Colace] 100 mg PO BID 5 Days #10 capsule Enoxaparin [Lovenox] 30 mg SQ DAILY 14 Days #14 syringe OxyCODONE Immed Rel [Roxicodone 5 MG] 5 mg PO Q6HR PRN 5 Days #20 tablet PRN Reason: Severe Pain Continued Pantoprazole Sodium [Protonix] 40 mg PO QPM Multivitamin [Daily Multiple Vitamin] 1 tab PO DAILY Calcium Carbonate/Vitamin D3 [Calcium 500-Vit D3 200 Caplet] 1 tab PO BID Lisinopril [Zestril] 10 mg PO BID hydroCHLOROthiazide [Hydrochlorothiazide] 12.5 mg PO QAM Gluc Levy/Chondro Levy A/Vit C/Mn [Glucosamine Chondroitin Tab] 3 tab PO DAILY Vit A/C/E AC/Znox/Cupric Oxide [Eye Vitamin-Minerals Tablet] 1 tab PO DAILY Ferrous Sulfate 325 mg PO BID Vitamin B Complex [B Complex] 1 tab PO DAILY Biotin 1 mg PO DAILY Atorvastatin [Lipitor] 40 mg PO QPM Ascorbate Calcium [Vitamin C] 500 mg PO DAILY Home Medications: Ascorbate Calcium [Vitamin C] 500 mg PO DAILY 01/17/19 [History] Atorvastatin [Lipitor] 40 mg PO QPM 01/17/19 [History] Biotin 1 mg PO DAILY 01/17/19 [History] Calcium Carbonate/Vitamin D3 [Calcium 500-Vit D3 200 Caplet] 1 tab PO BID 01/17/19 [History] Ferrous Sulfate 325 mg PO BID 01/17/19 [History] Gluc Levy/Chondro Levy A/Vit C/Mn [Glucosamine Chondroitin Tab] 3 tab PO DAILY 01/17/19 [History] Lisinopril [Zestril] 10 mg PO BID 01/17/19 [History] Multivitamin [Daily Multiple Vitamin] 1 tab PO DAILY 01/17/19 [History] Pantoprazole Sodium [Protonix] 40 mg PO QPM 01/17/19 [History] Vit A/C/E AC/Znox/Cupric Oxide [Eye Vitamin-Minerals Tablet] 1 tab PO DAILY 01/17/19 [History] Vitamin B Complex [B Complex] 1 tab PO DAILY 01/17/19 [History] hydroCHLOROthiazide [Hydrochlorothiazide] 12.5 mg PO QAM 01/17/19 [History] Docusate Sodium [Colace] 100 mg PO BID 5 Days #10 capsule 01/20/19 [Rx] Enoxaparin [Lovenox] 30 mg SQ DAILY 14 Days #14 syringe 01/20/19 [Rx] OxyCODONE Immed Rel [Roxicodone 5 MG] 5 mg PO Q6HR PRN 5 Days #20 tablet 01/20/19 [Rx] Allergies/Adverse Reactions: Allergy/AdvReac Type Severity Reaction Status Date / Time meloxicam [From Mob] Allergy Hives Verified 01/17/19 10:22 pecan nut Allergy Anaphylaxis Verified 01/17/19 10:22 walnut Allergy Anaphylaxis Verified 01/17/19 10:22 Date of admission: 01/17/19 14:41 Primary care physician: Gabo Cantrell MD Consults: 01/17/19 14:44 Consult to Nurse Navigator [CONS] Routine Comment: ortho navigator Consult to Nutrition [CONS] Routine Comment: Consulting Provider: NUTRITION Reason for Dietary Consult: Other Other:: Proper nutrition to facilitate wound healing Consult to Occupational Therapy [CONS] Routine Comment: Evaluate, develop and implement POC Reason for Consult: total hip replacement Does patient have active BEDREST order?: No Is patient medically & hemodynamically stable?: Yes Consult to Physical Therapy [CONS] Routine Comment: Evaluate, develop and implement POC Reason for Consult: total hip replacement Does patient have active BEDREST order?: No Is patient medically & hemodynamically stable?: Yes Consult to Corsets Salesperson [CONS] Routine Reason for SW Consult: post op joint replacement RT Post Op Consult [CONS] Routine 01/17/19 15:13 Consult to Pastoral Services [CONS] Routine Comment: Discharging clinician: Shamar Avina Anticipated date of discharge: 01/20/19 - VTE Documentation of Mechanical Device: Venous foot pump, device Labs on day of discharge: Labs from last 24 hours 01/20/19 01/20/19 01/19/19 07:33 07:33 14:57 WBC 7.9 RBC 3.25 L Hgb 10.1 L D Hct 30.4 L MCV 93.5 MCH 31.1 MCHC 33.2 RDW 15.8 H Plt Count 214 MPV 11.3 Immature Gran % 0.4 Seg Neutrophils % 72.0 Lymphocytes % 16.4 Monocytes % 8.4 Eosinophils % 2.5 Basophils % 0.3 Neutrophils # 5.7 Lymphocytes # 1.3 Monocytes # 0.7 Eosinophils # 0.2 Basophils # 0.0 Sodium 138 133 L Potassium 4.7 4.4 Chloride 105 99 Carbon Dioxide 24 27 BUN 38 H 47 H Creatinine 0.95 1.36 H Est GFR ( Amer) > 60 45 L Est GFR (Non-Af Amer) 56 L 37 L BUN/Creatinine Ratio 40 H 35 H Glucose 110 H 123 H Calculated Osmolality 296 290 Calcium 8.6 8.6 Crossmatch 01/19/19 09:24 WBC RBC Hgb Hct MCV MCH MCHC RDW Plt Count MPV Immature Gran % Seg Neutrophils % Lymphocytes % Monocytes % Eosinophils % Basophils % Neutrophils # Lymphocytes # Monocytes # Eosinophils # Basophils # Sodium Potassium Chloride Carbon Dioxide BUN Creatinine Est GFR ( Amer) Est GFR (Non-Af Amer) BUN/Creatinine Ratio Glucose Calculated Osmolality Calcium Crossmatch See Detail - Impressions ITS Impressions Hip X-Ray 01/17/19 01:00 IMPRESSION: Expected postsurgical changes from right hip arthroplasty. D/ / Uzma Piña MD / Uzma Piña MD Interpreting Provider: Uzma Piña MD - Patient Status Disposition: Transfer Inpatient Rehab Fac Condition: Good Functional capacity at discharge: uses cane/walker Overall status at discharge: patient is progressing back to baseline - Discharge Instructions Follow Up With: Kamille Partida PAC [Physician Manager Hardware] - 01/27/19 8:45 am (ALSO 02/04 AT 0830) Shamar Avina MD [Partnered Physician] - 02/16/19 5:45 pm Gabo Cantrell MD [Primary Care Provider] - Additional Instructions: Discharge Instructions: Total Hip Replacement Please call [facility] ([phone]), your Primary Care Physician, or report to the Emergency Room if you have any of the following symptoms: Nausea, vomiting, fever greater that 101.5, swelling, chest pain, shortness of breath, increased pain/redness/drainage/odor for your incision site, numbness/tingling, or any other concerning symptoms. ACTIVITY:Weight-bearing as tolerated for 8 weeks with hip dislocation precautions that physical therapy taught you. You may progress as tolerated under the guidance of your physical therapist. You do not need to sleep with a pillow between your legs. You can also seep on the operative side or on your stomach. Incentive Spirometer 10 times an hour. MEDICATIONS: Upon discharge resume your home medications. Take all the medications as prescribed. Take a stool softener if taking narcotic pain medications. Stool softeners are only effective if you drink enough fluids. Drink 6-8 glass of water or fluids a day, unless this is not allowed for another health problem. Despite using stool softeners, if you haven't had a bowel movement in 3 days, please switch to a gentle laxative. Gentle laxatives are sold over the counter. You should have a bowel movement within 24 hours, if not call the office. You will be discharged from the hospital with a prescription for pain medication. You are encouraged to decrease the use of narcotic pain medication as tolerated. Should you require a refill, please call the office. [facility] prescribes narcotic pain medication for only 4-6 weeks after surgery. If you require pain medication beyond this time period, you may be referred to your Primary Care Physician or to the Pain Clinic for further evaluation. Plan ahead for refills on pain medication as many narcotics either need to be picked up at the office or mailed. It is best to call 48-72 hours in advance of needing a prescription refill so you don't run out of medication. To help control the post-operative pain, you may take NSAIDs (Aleve,Advil, Motrin, ibuprofen, naprosyn) or Tylenol as prescribed on the bottle in addition to the pain medication. ANTICOAGULATION (blood thinners): Continue your Aspirin, Lovenox or Coumadin as prescribed to help prevent a blood clot in the leg or in the lungs. As long as your incision remains dry and you tolerate the NSAIDs (Aleve, Advil, Motrin, Ibuprofen, Naprosyn), it is OK to use the NSAIDS while you are taking your anticoagulation medication. Should your incision start to drain, stop the NSAID and contact our office. Common symptoms of blood clot in the legs include: localized pain, swelling, calf tenderness, redness or discoloration of the skin. Blood clot in the lung symptoms include: shortness of breath, rapid pulse, sweating, and chest pain that worsens with deep breathing, coughing up blood, lightheadedness, feelings of anxiety. If you experience any of these symptoms notify your physician immediately, go to the emergency room, or if having trouble breathing, call 911. WOUND CARE: Leave the dressing on for 7 to 10days. You may change the dressing if it is saturated greater than 50%. Do not get the dressing wet at anytime. Wash your hands with antibacterial soap, rinse and dry prior to any wound care. If you have francisco the visiting nurse or rehab facility can remove the stapes 10-14 days after surgery and place steri-strips across the wound. Leave the steri-strips in place until they fall off on their own. You may let water from the shower run on top of the steri-strips. If you do not have a visiting nurse or rehab facility, you will need to return to the office at 10-14 days for the francisco to be removed. If you have itching or redness around the dressing call the office. FOLLOW-UP: Please follow up with your surgeon in the orthopedic clinic in 6 weeks from the day of surgery. If you have francisco that need to be removed, you will need to come back to the office in 10-14 days from the day of surgery. - Diet and Activity Activity: as per physical therapy Diet: advance to your usual diet
== END 2019-01-20 15:45 | DRG 470 ==
LOC: SAMDAY 09:34 → 3NENU 14:41
PROVIDERS: ADMIT Orthopaedic Surgery; ATTEND Orthopaedic Surgery